=== PATIENT | male | born 1985 ===

== ENCOUNTER 2021-07-24 15:26 | Emergency (ER) | payer SELFPAY ==
[~2021-07-24] VITALS: Ht 162.6 cm; Wt 78.9 kg
[2021-07-24] MEDS ORDERED: FLONASE ALLERG9.9 ML (17:25)
== END 2021-07-24 17:38 | disposition home or self-care (01) ==
LOC: ER 15:26
DX: J32.9 Chronic sinusitis, unspecified (principal); B97.89 Other viral agents as the cause of diseases classified elsewhere
CPT/HCPCS: 99283; A9270